=== PATIENT | female | born 2000 | race Caucasian/White ===

== ENCOUNTER 2018-07-21 22:30 | Inpatient (IN) | END 2018-07-22 21:30 | disposition home or self-care (01) | DRG 833 ==

== ENCOUNTER 2018-08-12 16:02 | Inpatient (IN) | payer MEDICAID ==
[~2018-08-12] VITALS: Ht 152.4 cm; Wt 70.5 kg
[~2018-08-12 16:02] MED LIST: CALC-1 PO; FER325 PO; PREN-93 PO
[2018-08-12 16:23] VITALS: Ht 152.4 cm; Wt 70.5 kg
[2018-08-12 16:24] VITALS: BP 118/68; PULSE 93; RESP 18
[2018-08-12] MEDS ORDERED: LACTATED RINGER'S 1,000 ML IV ONE (16:30)
[2018-08-12] MEDS ORDERED: TERBUTALINE 1 MG/ML INJ SC ONE (16:30)
[2018-08-12] MEDS: LACTATED RINGER'S 1,000 ML IV SCH (17:48)
[2018-08-12] MEDS: BETAMET NA PHOS/AC(6 MG/ML) 2 ML INJ SYG IM SCH (20:35)
[2018-08-12] MEDS: TERBUTALINE 1 MG/ML INJ SC PRN (21:16)
[2018-08-13] MEDS: LACTATED RINGER'S 1,000 ML IV SCH ×3 (01:30→20:29)
[2018-08-13] MEDS: TERBUTALINE 1 MG/ML INJ SC PRN (10:13)
--- NOTE | 2018-08-13 18:08 | HP ---
Date/Time of Note Date/Time of Note DATE: 08/13/18 TIME: 18:03 OB - History Hx of Present Free Text/Dictation 18-year-old female 1 para 0 at 36 weeks and 5 days gestation admitted through antepartum testing unit of [facility] because of persistent uterine contractions and breech presentation and also decreased amniotic fluid Patient was being followed with antepartum unit for gross restricted growth Last Menstrual Period: Nov 06, 2017 Estimated Due Date: Sep 04, 2018 : 1 Para: 0 Care: Good Care Ultrasounds: Normal mid trimester US Obstetrical Complications: Other (Restricted growth) Medical Complications: None Past Family/Social History * Past Medical, Surgical, Family and Obstetric Histories reviewed from chart. Blood Type: O+ Rubella: immune RPR/VDRL: Negative GBS Status: Negative HBsAG: Negative OB Admission Exam Vital Signs Vital Signs Vital Signs Date Temp Pulse Resp B/P (MAP) Pulse Ox O2 O2 Flow FiO2 Time Delivery Rate 08/12/18 99.3 93 18 118/68 Room Air 16:24 (85) Physical Exam HEENT: WNL Heart: Rhythm Normal Lungs: Clear, Equal Abdomen: WNL Extremities: Normal Reflexes: Normal Cervical Dilatation: None Effacement: 0% Station: -3 Membranes: Intact Heart Rate: 140's Accelerations: Accelerations Present Decelerations: No Decelerations Varibility: Marked Contractions on Admission: < 5 Minutes Apart Date/Time Contractions Began: ? Patient does not feel contractions Frequency of Contractions: ? Duration: ? Intensity: Mild Last 72 hours Lab Results CBC & BMP 08/12/18 21:16 OB Assessment/Plan Reason for admission: labor Other Assessment: 36 weeks and 5 days gestation with uterine contraction Breech presentation by perinatology Other plan: Patient was admitted for IV hydration Decreased amniotic fluid was diagnosed by perinatologist repeat SHYLA of 5.9 We will continue IV hydration Subcutaneous terbutaline was administered for persistent uterine contractions Per perinatologist baby appeared to be in breech presentation and perinatologist recommended delivery at 37 weeks VERA SHAW MD Aug 13, 2018 18:08
--- NOTE | 2018-08-13 18:09 | PN ---
Date/Time of Note Date/Time of Note DATE: 08/13/18 TIME: 18:08 OB Subjective Subjective Subjective Patient does not have complaint of uterine contractions OB Objective Objective Objective Vital signs stable and general physical exam is unchanged Patient awaiting the second dose of steroids OB Assessment/Plan Reason for admission: labor Other Assessment: 36 weeks and 6 days gestation Other plan: Proceed with delivery the next day per perinatologist recommendation VERA SHAW MD Aug 13, 2018 18:09
[2018-08-13] MEDS: BETAMET NA PHOS/AC(6 MG/ML) 2 ML INJ SYG IM SCH (20:31)
[2018-08-14] MEDS: LACTATED RINGER'S 1,000 ML IV SCH ×4 (01:42→18:07)
[2018-08-14] MEDS ORDERED: OXYTOCIN 30 UNITS/LR 500 ML BAG IV ONE (07:00)
[2018-08-14] MEDS ORDERED: MISOPROSTOL 200 MCG TAB PR PRN ×3 (11:30→23:00)
[2018-08-14] MEDS ORDERED: CARBOPROST 250 MCG INJ IM PRN ×3 (11:30→23:00)
[2018-08-14] MEDS ORDERED: OXYTOCIN 30 UNITS/LR 500 ML IV SCH (14:30)
[2018-08-14] MEDS ORDERED: CEFAZOLIN 2 GM/50 ML (PMX) 50 ML IVPB SCH (14:30)
[2018-08-14] MEDS ORDERED: OXYTOCIN 30 UNITS/LR 500 ML IV PRN ×2 (14:30→23:00)
[2018-08-14] MEDS ORDERED: METHYLERGONOVINE 0.2 MG INJ IM PRN ×2 (14:30→23:00)
[2018-08-14] MEDS ORDERED: OXYTOCIN 10 UNIT INJ ONE (18:25)
[2018-08-14] MEDS ORDERED: PHENYLephrine (100 MCG/ML) 10ML SYG ONE (18:25)
[2018-08-14] MEDS ORDERED: ONDANSETRON 4 MG INJ ONE (18:25)
[2018-08-14] MEDS ORDERED: morphine SULFATE/PF (10 MG/10 ML) INJ ONE (18:25)
--- NOTE | 2018-08-14 18:42 | PREAC ---
Date/Time of Note Date/Time of Note DATE: 08/14/18 TIME: 18:41 Anesthesia Eval and Record Evaluation Time Pre-Procedure Interview DATE: 08/14/18 TIME: 18:41 Age 18 Sex female NPO: 8 hrs Preoperative diagnosis IUP Planned procedure Csection Past Medical History Past Medical History: None Surgery & Anesthesia Issues No known issue Meds Anticoagulation: No Beta Jasmine within 24 hr: No Reason Beta Jasmine not given: Pt. not on B-Jasmine Reported Medications Ferrous Sulfate* (Ferrous Sulfate*) 325 Mg Tabec, 325 MG PO DAILY, TAB 07/21/18 Calcium Carbonate/Vitamin D3 (Calcium 500+D Tablet Chew) 1 Each Tab.chew, 1 EACH PO DAILY, TAB.CHEW 07/21/18 Vit No.124/Iron/FA ( Vitamin Tablet) 1 Each Tablet, 1 EACH PO DAILY, TAB 07/21/18 Current Medications Lactated Ringer's 1,000 ml @ 125 mls/hr Q8H IV Last administered on 08/14/18at 18:07; Admin Dose 125 MLS/HR; Start 08/12/18 at 16:30 Terbutaline Sulfate (Brethine) 0.25 mg Q4 PRN SC contractions Last administered on 08/13/18at 10:13; Admin Dose 0.25 MG; Start 08/12/18 at 21:00 Cefazolin Sodium/ Dextrose 50 ml @ 100 mls/hr ONCE IVPB ; Start 08/14/18 at 14:30 Oxytocin/Lactated Ringer's 500 ml @ 125 mls/hr POST IV ; Start 08/14/18 at 14:30 Oxytocin/Lactated Ringer's 500 ml @ 0 mls/hr ONCE PRN IV VAGINAL BLEEDING; Start 08/14/18 at 14:30 Methylergonovine Maleate (Methergine) 0.2 mg ONCE PRN IM VAGINAL BLEEDING; Start 08/14/18 at 14:30 Carboprost Tromethamine (Hemabate) 250 mcg ONCE PRN IM VAGINAL BLEEDING; Start 08/14/18 at 14:30 Misoprostol (Cytotec) 1,000 mcg ONCE PRN AR VAGINAL BLEEDING; Start 08/14/18 at 14:30 Meds reviewed: Yes Allergies Coded Allergies: No Known Allergy (Unverified , 07/21/18) Allergies Reviewed: Yes Labs/Studies Labs Reviewed: Reviewed by anesthesiologist Result Diagram: 08/12/182115 test: Positive Studies: ECG Pre-procedure Exam Last vitals Vital Signs Date Temp Pulse Resp B/P (MAP) Pulse Ox O2 O2 Flow FiO2 Time Delivery Rate 08/12/18 99.3 93 18 118/68 Room Air 16:24 (85) Airway: Adequate mouth opening, Adequate thyromental dist Mallampati: Mallampati II Teeth: Normal Lung: Normal Heart: Normal ASA Physical Status ASA physical status: 2 Emergency: None Planned Anesthetic Neuraxial: Spinal Pre-operative Attestations Prior to commencing anesthesia and surgery, the patient was re-evaluated, there was verification of: *The patient's identity *The results of appropriate recent lab work and preoperative vital signs *The above evaluation not changing prior to induction *Anesthetic plan, risk benefits, alternative and complications discussed with patient/family; questions answered; patient/family understands, accepts and wishes to proceed. TYLER LAZCANO MD Aug 14, 2018 18:42
--- NOTE | 2018-08-14 19:45 | OPR ---
Operative Report Planned Procedure Free Text/Dictation 18-year-old female with uterine contractions at 37 weeks and breech presentation Procedure date Aug 14, 2018 Procedure(s) Primary section Performed by see signature line Mechanical Expert: ENRIQUE BUSTILLOS Anesthesiologist: TYLER LAZCANO MD Pre-procedure diagnosis 37 weeks gestation Uterine contractions Breech presentation decreased amniotic fluid [id number] Anesthesia Type: [id number] spinal Post-Procedure Post-procedure diagnosis Status post Findings Live Baby in leia breech presentation Estimated Blood Loss: 500 - 600 mls Specimen(s) none Grafts/Implant(s) none Complication(s) none Pt Condition post procedure: stable Disposition: PACU Procedure Description Under satisfactory anaesthesia a Pfannenstiel incision was made two fingerbreadth above and parallel to the symphysis of pubis. Incision was extended laterally to the border of the Recti muscles on either sides. Incision was carried down with sharp and blunt dissection until fascia wa s reached. Anterior Recti muscle fascia was incised in mid portion and incision extended laterally to the border of skin incision. Fascia was mobilized from muscle superiorly and Recti muscles were from midline using sharp and blunt dissection. Peritoneum was visualized; Avoiding bowel and bladder it was incised . Incision was extended superiorly and inferiorly. Bladder blade was placed. Posterior peritoneum covering the lower segment of the uterus and lower segment of the uterus were incised. Incision was extended laterally to the border of Round Lig. on either sides and baby was delivered via total breech extraction without any difficulty. Amniotic fluid appeared clear however scant. Cord blood was obtained and cord had 3 vessels . Placenta was delivered spontaneously and appeared intact and complete. Intrauterine cavity was rubbed with a laparotomy sponge. Uterine incision was closed in 2 layers using running stitches of No1 Monocryl. Hemostasis appeared secure. Ovaries and Fallopian tubes were within normal limits. Announcing needle, lap sponge and instrument count to be correct abdomen was closed in layers as follows: Peritoneum and Recti muscles with running stitches of 2-0 Vicryl. Fascia with running stitch of No 1 PDS. Subcutaneous tissue with running stitches of 2-0 Monocryl and skin was closed using elif. Patient tolerated the procedure well and was transferred to [facility] in good condition. VERA SHAW MD Aug 14, 2018 19:45
--- NOTE | 2018-08-14 19:46 | PAC ---
Date/Time of Note Date/Time of Note DATE: 08/14/18 TIME: 19:45 Post-Anesthesia Notes Post-Anesthesia Note Last documented vital signs Vital Signs Date Temp Pulse Resp B/P (MAP) Pulse Ox O2 O2 Flow FiO2 Time Delivery Rate 08/12/18 99.3 93 18 118/68 Room Air 16:24 (85) Activity: WNL Respiratory function: WNL Cardiovascular function: WNL Mental status: Baseline Pain reasonably controlled: Yes Hydration appropriate: Yes Nausea/Vomiting absent: Yes Comments BP:112/56, pulse:88,spo2:100%, T:98,4 TYLER LAZCANO MD Aug 14, 2018 19:46
[2018-08-14] MEDS ORDERED: ONDANSETRON 4 MG INJ IV PRN (20:00)
[2018-08-14] MEDS ORDERED: morphine 2 MG INJ IV PRN (20:00)
[2018-08-14] MEDS ORDERED: AZITHROMYCIN 500MG/NS (PMX) 250 ML IVPB ONE (20:00)
[2018-08-14] MEDS ORDERED: DIPHENHYDRAMINE 50 MG INJ IV PRN (20:00)
[2018-08-14] MEDS ORDERED: KETOROLAC 30 MG INJ IV PRN (20:00)
[2018-08-14] MEDS ORDERED: NALOXONE (0.4 MG/ML) INJ IV PRN (20:00)
[2018-08-14 22:30] VITALS: BP 108/64; PULSE 86; RESP 19
[2018-08-14] MEDS ORDERED: LACTATED RINGER'S 1,000 ML IV SCH (22:44)
[2018-08-14] MEDS ORDERED: NA PHOSPHATE/BIPHOS 133 ML ENEMA PR PRN (23:00)
[2018-08-14] MEDS ORDERED: LANOLIN HPA 1 PKT TOP PRN (23:00)
[2018-08-15] VITALS: BP 89/59; PULSE 87; RESP 18
[2018-08-15] MEDS: CEFAZOLIN 2 GM/50 ML (PMX) 50 ML IVPB SCH ×3 (02:07→17:35)
[2018-08-15 04:00] VITALS: BP 91/55; PULSE 92; RESP 20
[2018-08-15] MEDS: CLINDAMYCIN 300 MG CAP PO SCH ×5 (06:00→23:59)
--- NOTE | 2018-08-15 06:32 | NUR ---
EOSS: PATIENT IN STABLE CONDITION, BLEEDING IS MINIMUM, GOOD URINE OUTPUT, BONDS WELL WITH BABY.
[2018-08-15 08:25] VITALS: BP 91/56; PULSE 80; RESP 20
[2018-08-15] MEDS ORDERED: BISACODYL 10 MG SUPP PR ONE (10:00)
[2018-08-15 12:05] VITALS: BP 91/54; PULSE 77; RESP 18
--- NOTE | 2018-08-15 12:50 | PN ---
Date/Time of Note Date/Time of Note DATE: 08/15/18 TIME: 12:47 Assessment/Plan Lines/Catheters IV Catheter Type (from Nrsg): Peripheral IV Subjective 24 Hr Interval Summary No bowel movements Passing flatus Constitutional: no complaints, improved, ambulates, BM, flatus, urine output Pain Control: well controlled Exam/Review of Systems Vital Signs Vitals Vital Signs Date Temp Pulse Resp B/P (MAP) Pulse Ox O2 O2 Flow FiO2 Time Delivery Rate 08/15/18 97.8 80 20 91/56 (68) 98 08:25 08/12/18 Room Air 16:24 Intake and Output 08/14/18 08/14/18 08/15/18 1515:00 23:00 07:00 IntakeIntake Total 625 ml 1150 ml OutputOutput Total 900 ml 1800 ml 500 ml BalanceBalance -275 ml -650 ml -500 ml Exam Free Text/Dictation Abdomen is soft and nontender bowel sounds are present Abdomen does not seem distended Well covered Constitutional: alert, oriented, well developed Psych: no complaints, nl mood/affect Head: normocephalic, atraumatic Eyes: nl conjunctiva, EOMI, nl lids, nl sclera ENMT: nl external ears & nose, nl lips & teeth, nl nasal mucosa & septum, mucosa pink and moist Neck: supple, non-tender Respiratory: clear to auscultation, normal air movement Cardiovascular: regular rate and rhythm, nl pulses Gastrointestinal: soft, nl liver, spleen, non-tender Musculoskeletal: nl extremities to inspection, nl gait and stance Extremities: normal pulses Neurological: BULK GAS SPECIALIST II-XII intact, nl mental status, nl speech, nl strength Skin: nl turgor, rash or lesions Lymph: nl lymph nodes Results Result Diagram: 08/15/18 0652 VERA SHAW MD Aug 15, 2018 12:49
[2018-08-15 16:15] VITALS: BP 100/61; PULSE 80; RESP 20
--- NOTE | 2018-08-15 17:12 | NUR ---
EOSS; BONDING WELL, BREAST FEEDING , AMBULATING, DENIES PAIN, AFEBRILE.
[2018-08-15] MEDS ORDERED: HYDROCODONE/APAP (5/325) TAB PO PRN (18:30)
[2018-08-15] MEDS ORDERED: OXYCODONE/ACETAMINOPHEN (5/325) TAB PO PRN (18:30)
[2018-08-15 20:00] VITALS: BP 102/61; PULSE 98; RESP 18
[2018-08-15] MEDS: IBUPROFEN 800 MG TAB PO SCH (21:54)
[2018-08-15] MEDS: SENNA/DOCUSATE NA (8.6MG/50MG) TAB PO SCH (21:54)
[2018-08-16 04:00] VITALS: BP 105/61; PULSE 81; RESP 20
--- NOTE | 2018-08-16 06:04 | NUR ---
EOSS: BONDING WELL WITH BABY, AMBULATES WELL, VOIDS WELL, IN STABLE CONDITION.
[2018-08-16] MEDS: CLINDAMYCIN 300 MG CAP PO SCH ×3 (06:48→18:08)
[2018-08-16] MEDS: IBUPROFEN 800 MG TAB PO SCH ×2 (06:48→14:33)
[2018-08-16 08:00] VITALS: BP 99/66; PULSE 83; RESP 19
[2018-08-16] MEDS: SENNA/DOCUSATE NA (8.6MG/50MG) TAB PO SCH (10:00)
--- NOTE | 2018-08-16 11:36 | DS ---
Date/Time of Note Date/Time of Note home today or next day DATE: 08/16/18 TIME: 11:34 Obstetrical Discharge Record Final Diagnosis Final Diagnosis: Term delivered Other Final Diagnosis S/P C/S Section Section: Primary Primary Indication breech Complications Other (IUGR + decreased amniotic fluid) Condition on Discharge Physical Assessment Last Vitals: see nurses notes Voiding: Yes Bowel Movement: Yes Breast: Soft, non-tender, Filling Fundus: Firm Abdomen and Incision: abdomen is soft with present BS incision: healing well Episiotomy: NA Calf Tenderness: No Patient Condition: Good VERA SHAW MD Aug 16, 2018 11:36
--- NOTE | 2018-08-16 11:46 | DS ---
Date/Time of Note Date/Time of Note DATE: 08/16/18 TIME: 11:43 Discharge Summary Admission/Discharge Info Admit Date/Time Aug 12, 2018 at 18:20 Discharge Date/Time 08/16/2018 Discharge Diagnosis S/P C/S Patient Condition: Good Procedures primary C/S Hx of Present Illness 18 y/o female had primary C/S Hospital Course uncomplicated Home Meds Reported Medications Ferrous Sulfate* (Ferrous Sulfate*) 325 Mg Tabec, 325 MG PO DAILY, TAB 07/21/18 Calcium Carbonate/Vitamin D3 (Calcium 500+D Tablet Chew) 1 Each Tab.chew, 1 EACH PO DAILY, TAB.CHEW 07/21/18 Vit No.124/Iron/FA ( Vitamin Tablet) 1 Each Tablet, 1 EACH PO DAILY, TAB 07/21/18 Follow-up Plan 3-4 days in clinic for staple removal Primary Care Provider Time spent on discharge: > 30 minutes VERA SHAW MD Aug 16, 2018 11:46
--- NOTE | 2018-08-16 11:48 | PD.PPDC ---
SUPPLIER QUALITY MANAGER Discharge Instruction Provider Information Physician Information 18 y/o female had C/S for breech presentation Diagnosis Kalea3Pp Final Diagnosis: Piuty8l S/P C/S Condition [id number] Patient Condition: Kvljs6l Good Diet Mhypy2Ec Diet: Uhzal1k Resume Regular Diet Activity/Restrictions Yzhur6Vx Activity: Zqrbl1l May Shower Vaznk6Wu Restrictions: Xfwzh3h No Exercising No Lifting Nothing in the Vagina Echag2Rz Return to Work or School: Unuvc9q Oct 19, 2018 Follow-up Follow-up with Physician: 3, 4, Day/Days (in clinic for staple removal) Return to clinic for [id number] [employer] SPECIALIST Instructions: Atmjs9a Fever greater than 101 Chills [id number] OB Instructions: Voiyf9h Breast Tenderness Depression Comment: pelvic rest and no hard activity x 2 months [id number] Surgical Instructions: Rdcey6n Incisional Drainage Incisional Redness VERA SHAW MD Aug 16, 2018 11:48
[2018-08-16] MEDS ORDERED: IBUP800T48 PO (11:49)
[2018-08-16] MEDS ORDERED: ACET325T33 PO (11:49)
[2018-08-16] MEDS ORDERED: ACETAMINOPHEN 325 MG TAB PO PRN (12:00)
[2018-08-16 12:56] VITALS: BP 97/60; PULSE 88; RESP 18
--- NOTE | 2018-08-16 13:15 | NUR ---
EVERY OTHER STAPLE REMOVED. APPLIED STERISTRIPS TO INCISION. PROVIDED STAPLE REMOVAL KIT FOR PT TO TAKE AT THE CLINIC. PROVIDED PATIENT WITH ABDOMINAL BINDER.
[2018-08-16 15:50] VITALS: BP 112/69; PULSE 86; RESP 20
--- NOTE | 2018-08-16 18:55 | NUR ---
PATIENT DISCHARGED HOME WITH HER BABY IN ARMS VIA WHEELCHAIR IN STABLE CONDITION.
[2018-08-17] MEDS ORDERED: MEASLES,MUMPS,RUBELLA VACCINE INJ SC* ONE (09:00)
[2018-08-17] MEDS ORDERED: DIPHTH/TET/ACEL PERTUSS (ADULT) 0.5 ML VIAL IM* ONE (09:00)
== END 2018-08-16 18:50 | disposition home or self-care (01) | DRG 787 ==
LOC: OBT 16:02 → L-D 16:03 → OBT 18:20 → L-D 18:20 → PP1 08-14 22:52
PROVIDERS: ADMIT Obstetrics & Gynecology; ATTEND Obstetrics & Gynecology
PROC: 10D00Z1 Extraction of Products of Conception, Low, Open Approach (ICD-10-PCS; principal; 2018-08-14 15:30)
DX: O32.1XX0 Maternal care for breech presentation, not applicable or unspecified (principal); O41.03X0 Oligohydramnios, third trimester, not applicable or unspecified; O36.5930 Maternal care for other known or suspected poor fetal growth, third trimester, not applicable or unspecified; Z3A.36 36 weeks gestation of pregnancy; Z37.0 Single live birth
CPT/HCPCS: 36415; 76815; 85025; 85610; 85730; 86592; 86850; 86900; 86901; 87340; 90686; 99464; G0463; J0456; J0690; J0702; J1200; J1885; J2274; J2370; J2405; J2590; J3105; J7120